=== PATIENT | female | born 1960 | race Caucasian/White ===

== ENCOUNTER 2016-11-16 07:24 | Outpatient (CLI) | payer MEDICAID ==
[~2016-11-16] VITALS: Ht 160 cm; Wt 106.8 kg
--- NOTE | ~2016-11-16 | OP ---
PATIENT NAME: TERRANCE SCOTT MEDICAL RECORD: [id number] :58 LOCATION:D[facility] ADMISSION DATE: SURGEON: BIBI RUST MD DATE OF OPERATION: 11/16/2016 PROCEDURES: 1. Left heart catheterization. 2. Selective coronary angiography. 3. Left ventriculogram. INDICATION: Angina and coronary artery disease. PROCEDURE IN DETAIL: After informed consent was obtained and after a detailed explanation of risks, benefits as well as alternative therapies, the patient elected to proceed with angiogram and heart catheterization. The right radial area was prepped and draped in normal sterile fashion. The right radial artery was cannulated via modified Seldinger technique with placement of 5-English sheath. All catheters were exchanged through this sheath. FINDINGS: Left ventriculogram was performed in the standard 30-degree GIMENEZ view reveals good cardiac wall motion throughout all segments. Overall ejection fraction estimated at 55%. SELECTIVE CORONARY ANGIOGRAPHY: 1. Left main showed no significant angiographic disease. 2. Left anterior descending has previously placed stents in the LAD and LAD diagonal. These are widely patent with no significant restenosis. No disease elsewise throughout the LAD or its branches. 3. Left circumflex shows moderate irregularities, but no flow-limiting stenosis. 4. Right coronary has moderate irregularities, but no flow-limiting stenosis. OVERALL IMPRESSION: No significant restenosis of the previously placed stents. No disease elsewise. Continue medical management of the coronary artery disease and cardiac risk factors. TRANSINT:[id number] Voice Confirmation ID: [id number] DOCUMENT ID: [id number] BIBI RUST MD CC: [id number] DICTATION DATE: 11/16/16 0938 SENIOR DATASTAGE DEVELOPER: 11/16/161924 DEP CLI 11/16/16 [facility] [address] [place] [id number]
--- NOTE | ~2016-11-16 | HEMODYNAMI ---
PATIENT:TERRANCE SCOTT MEDICAL RECORD: [id number] : 58 LOCATION:[facility] ADMISSION DATE: 11/16/16 Generatedon:11/16/20169:30 Patient name: TERRANCE SCOTT Patient #: [id number] SSN: D OB: 1960 Date of study: 11/16/2016 Page: Of Hemodynamic Procedure Report Patient Data Patient Demographics Procedure consent was obtained First Name: TERRANCE Gender: Female Last Name: TYLER : 1960 Middle Initial: MOHSEN Age: 56 year(s) Patient #: [id number] Race: Additional ID: [id number] Contact details [address]: [address] [place] [address] State: [place] City: [place] Zip code: [address] Past Medical History History of disease Date Diagnosis Comments CAD Allergies: No known allergies Admission Admission Data Admission Date: 11/16/2016 Admission Time: 7:24 Lab Results Lab Result Date: 11/16/2016 Lab Result Time: 7:50 Biochemistry Name Units Result Min Max BUN mg/dl 18 --(---*)-- 7 18 Creatinine mg/dl 1.2 --(---*)-- 0.6 1.3 CBC Name Units Result Min Max Hematocrit % 40 -*(----)-- 42 54 Hemoglobin g/dl 14 --(*---)-- 13.5 17.5 Procedure Procedure Types Cath Procedure Diagnostic Procedure LHC LH w/Coronaries Miscellaneous Procedures Moderate Sedation up to 30 minutes Procedure Description Procedure Date Procedure Date: 11/16/2016 Procedure Start Time: 9:20 Procedure End Time: 9:30 Procedure Staff Name Function Boni Coreas MD Performing Physician Diogenes Easley RT Scrub Arik Wayne RN Nurse Essence Stauffer RT Monitor Neville Marroquin RT Train Reservation Clerk Procedure Data Cath Procedure Fluoroscopy Diagnostic fluoroscopy Total fluoroscopy Time: 1 time: 1 min min Diagnostic fluoroscopy Total fluoroscopy dose: dose: 240.44 mGy 240.44 mGy Contrast Material Contrast Material Type Amount (ml) Isovue 300 88 Entry Location Entry Primary Successful Side Size Upsize Upsize Entry Closure Barcenas ccessful Closure Location (Fr) 1 (Fr) 2 (Fr) Remarks Device Remarks Radial Right 6 Fr Mechanical artery Short Compression Estimated blood loss: 5 ml Diagnostic catheters Device Type Used For End Catheter Placement Terumo 5Fr Casey 110cm LV Angiography catheter Terumo 5Fr Casey 110cm Left Coronary catheter Angiography Terumo 5Fr Casey 110cm Right Coronary catheter Angiography Procedure Complications No complications Procedure Medications Medication Administration Route Dosage Oxygen NC 2 l/min Heparin Flush Bag added to field 2 bags (1000units/500ml NS) Lidocaine 2% added to field 20 Radial Cocktail added to field 1 syringe (Verapomil 2mg/Nitro 400mcg/Heparin 1500units) 0.9% NaCl I.V. 100 ml/hr Fentanyl I.V. 50 mcg Versed I.V. 1 mg Fentanyl I.V. 50 mcg Versed I.V. 1 mg Fentanyl I.V. 50 mcg Fentanyl I.V. 50 mcg Versed I.V. 1 mg Radial Cocktail I.A. 1 syringe (Verapomil 2mg/Nitro 400mcg/Heparin 1500units) Hemodynamics Rest HGB: 14 (g/dl) Heart Rate: 68 (bpm) Snapshots Pre Cath Intra NCS Post Cath Vital Signs Time Heart Resp SPO2 NIBP (mmHg) Rhythm Pain Sedation Rate (ipm) (%) Status Level (bpm) 8:40:38 73 16 95 120/80(105) NSR 0 (11) 10(A) , No pain 8:44:56 74 18 99 122/86(109) NSR 0 (11) 10(A) , No pain 8:49:14 71 19 100 120/86(105) NSR 0 (11) 10(A) , No pain 8:53:34 75 16 98 114/78(99) NSR 0 (11) 10(A) , No pain 8:57:50 80 16 97 114/83(95) NSR 0 (11) 10(A) , No pain 9:02:06 77 16 97 115/80(97) NSR 0 (11) 10(A) , No pain 9:06:26 77 16 94 108/79(92) NSR 0 (11) 10(A) , No pain 9:10:42 68 17 95 111/74(95) NSR 0 (11) 9(A) , No pain 9:14:58 69 18 94 98/71(89) NSR 0 (11) 9(A) , No pain 9:19:10 68 18 92 114/75(94) NSR 0 (11) 9(A) , No pain 9:23:32 84 18 92 96/63(81) NSR 0 (11) 9(A) , No pain 9:27:46 89 18 94 103/65(81) NSR 0 (11) 9(A) , No pain Medications Time Medication Route Dose Verified Delivered Reason Notes E ffectiveness by by 8:41:42 Oxygen NC 2 l/min Boni Elise Per Joss Wayne RN physician 8:41:51 Heparin Flush added 2 bags Boni Plata used for Bag to Joss Coreas MD procedure (1000units/500ml field NS) 8:41:58 Lidocaine 2% added 20ml Boni Plata used for to vial Joss Coreas MD procedure field 8:42:11 Radial Cocktail added 1 Boni Boni used for (Verapomil to syringe Joss Coreas MD procedure 2mg/Nitro field 400mcg/Heparin 1500units) 8:58:33 0.9% NaCl I.V. 100 Arik Arik Per ml/hr Tone Wayne RN physician RN 9:09:03 Fentanyl I.V. 50 mcg Arik Arik for sedation Tone Wayne RN RN 9:09:10 Versed I.V. 1 mg Arik Arik for sedation Tone Wayne RN RN 9:10:27 Fentanyl I.V. 50 mcg Arik Arik for sedation Tone Wayne RN RN 9:10:34 Versed I.V. 1 mg Arik Arik for sedation Tone Wayne RN RN 9:17:37 Fentanyl I.V. 50 mcg Arik Arik for sedation Tone Wayne RN RN 9:21:31 Fentanyl I.V. 50 mcg Arik Arik for sedation Tone Wayne RN RN 9:22:07 Versed I.V. 1 mg Arik Arik for sedation Tone Wayne RN RN 9:22:14 Radial Cocktail I.A. 1 Arik Boni for (Verapomil syringe Tone Coreas MD vasodilation 2mg/Nitro RN 400mcg/Heparin 1500units) Procedure Log Time Note 8:15:55 Neville Lopez RT(R) sent for patient. Start room use. 8:35:17 Time tracking: Regular hours 8:35:21 Plan of Care:Hemodynamics will remain stable., Cardiac rhythm will remain stable., Comfort level will be maintained., Respiratory function will remain adequate., Patient/ family verbilizes understanding of procedure., Procedure tolerated without complication., Recovers from procedure without complications.. 8:35:25 Patient received from Pre/Post Procedure Room to CCL 3 Alert and oriented. Tansferred to table in Supine position. 8:35:26 Warm blankets applied, and denis hugger turned on for patient comfort. 8:35:26 Correct patient and procedure confirmed by team. 8:35:27 Signed procedure consent form obtained from patient. 8:35:28 ECG and BP/O2 sat monitors applied to patient. 8:38:30 Pre-procedure instructions explained to patient. 8:38:30 Pre-op teaching completed and patient verbalized understanding. 8:38:31 Family in waiting room. 8:38:33 Patient NPO since Midnight. 8:38:42 Patient allergic to No known allergies 8:38:44 Is the patient allergic to Iodine/contrast media? No. 8:38:45 Is patient on blood thinner?Yes 8:38:48 ACC The patient was administered the following blood thiners within the last 24 hours: ACCPlavix 8:38:49 Patient diabetic? No. 8:38:52 Previous problem with sedation/anesthesia? No ? 8:38:53 Snore? Yes 8:38:54 Sleep apnea? No 8:38:55 Deviated septum? No 8:38:56 Opens mouth fully? Yes 8:38:56 Sticks out tongue? Yes 8:38:58 Airway obstruction? No ? 8:39:09 Dentures? No ? 8:39:12 Modified Feliciano's test Ulnar < 7 seconds 8:39:14 Patient pain scale 0/10 ?. 8:39:21 IV patent on arrival in left wrist with 0.9% NaCl at KVO. 8:39:25 Vital chart was started 8:40:02 Lab Result : Creatinine 1.2 mg/dl 8:40:02 Lab Result : BUN 18 mg/dl 8:40:02 Lab Result : Hematocrit 40 % 8:40:02 Lab Result : Hemoglobin 14 g/dl 8:40:05 Lab results completed and on chart. 8:40:07 Right Radial & Right Groin area was prepped with chlora-prep and draped in sterile fashion 8:40:08 Alarms reviewed by R. N. 8:40:08 Sharps counted by scrub and verified by R.N. 8:40:11 Use device set Radial Dx 8:40:14 Tegaderm 4 x 4 opened to sterile field. 8:40:16 Acist Hand Control opened to sterile field. 8:40:16 Acist Manifold opened to sterile field. 8:40:17 Acist Syringe opened to sterile field. 8:40:18 Medline Cath Pack opened to sterile field. 8:40:18 Bag Decanter opened to sterile field. 8:40:19 Terumo 6Fr Slender Glidesheath opened to sterile field. 8:40:19 St Jules 260cm J .035 wire opened to sterile field. 8:41:42 Oxygen 2 l/min NC was administered by Arik Wayne RN; Per physician; 8:41:51 Heparin Flush Bag (1000units/500ml NS) 2 bags added to field was administered by Boni Coreas MD; used for procedure; 8:41:58 Lidocaine 2% 20ml vial added to field was administered by Boni Coreas MD; used for procedure; 8:42:09 Rhythm: sinus rhythm 8:42:11 Radial Cocktail (Verapomil 2mg/Nitro 400mcg/Heparin 1500units) 1 syringe added to field was administered by Boni Coreas MD; used for procedure; 8:42:12 Full Disclosure recording started 8:42:19 H&P Date Dictated: 09/27/2016 New H&P dictated by physician.. 8:49:44 Baseline sample Acquired. 8:58:33 0.9% NaCl 100 ml/hr I.V. was administered by Arik Wayne RN; Per physician; 9:01:01 Zero performed for pressure channel P1 9:08:40 Final Timeout: patient, procedure, and site verified with staff and physician. All members of the team are in agreement. 9:08:43 Right Radial site verified by team. 9:08:45 Physical assessment completed. ASA score P 2 - A patient with mild systemic disease as per Boni Coreas MD. 9:08:48 Sedation plan: IV Moderate Sedation Versed, Fentanyl 9:09:03 Fentanyl 50 mcg I.V. was administered by Arik Wayne RN; for sedation; 9:09:10 Versed 1 mg I.V. was administered by Arik Wayne RN; for sedation; 9:10:27 Fentanyl 50 mcg I.V. was administered by Arik Wayne RN; for sedation; 9::34 Versed 1 mg I.V. was administered by Arik Wayne RN; for sedation; 9:17:37 Fentanyl 50 mcg I.V. was administered by Arik Wayne RN; for sedation; 9:20:37 Procedure started. 9::47 Local anesthetic to right radial artery with Lidocaine 2% by Boni Coreas MD.INITIAL ACCESS ONLY 9:21:24 A 6 Fr Short sheath was inserted into the Right Radial artery 9:21:31 Fentanyl 50 mcg I.V. was administered by Arik Wayne RN; for sedation; 9:22:07 Versed 1 mg I.V. was administered by Arik Wayne RN; for sedation; 9:22:14 Radial Cocktail (Verapomil 2mg/Nitro 400mcg/Heparin 1500units) 1 syringe I.A. was administered by Boni oCreas MD; for vasodilation; 9:22:17 A Terumo 5Fr Casey 110cm catheter was advanced over the wire and used for LV Angiography. 9:22:52 LV gram done using GIMENEZ 9::56 Injector settings: Ml/sec: 5, Volume: 15, 9:23:02 EF : 50 % 9:23:20 A Terumo 5Fr Casey 110cm catheter was advanced over the wire and used for Left Coronary Angiography. 9:25:07 A Terumo 5Fr Casey 110cm catheter was advanced over the wire and used for Right Coronary Angiography. 9:25:38 Catheter removed. 9:25:55 Sheath removed intact; hemostasis achieved with Mechanical Compression to the Right Radial artery. 9:26:00 Procedure ended.(Physican Out) 9:26:11 Fluoroscopy time 01.00 minutes. 9:26:17 Fluoroscopy dose: 240.44 mGy 9:26:17 Flurop Dose total: 240.44 9:26:20 Contrast amount:Isovue 300 88ml. 9:26:21 Sharps counted by scrub and verified by R.N. 9:26:25 TR band inflated with 12cc of air. 9:26:26 Insertion/operative site no bleeding no hematoma. 9:26:33 Post right radial artery:stable, clean and dry 9::34 Post Procedure Pulses reassessed and unchanged 9:26:39 Post-procedure physical assessment completed. ASA score P 2 - A patient with mild systemic disease as per Boni Coreas MD. 9:26:42 Post procedure rhythm: unchanged. 9::45 Estimated blood loss: 5 ml 9::47 Post procedure instruction explained to patient.Patient verbalizes understanding. 9:26:47 Patient needs reinforcement of post procedure teaching. 9:27:00 Procedure type changed to Cath procedure, Diagnostic procedure, LHC, LHC w/Coronaries, Miscellaneous Procedures, Moderate Sedation up to 30 minutes 9:27:09 Procedure Complication : No complications 9:27:18 Terumo TR Band Standard opened to sterile field. 9:27:50 Procedure and supply charges have been captured, reviewed, submitted and are correct. 9:27:51 See physician's report for complete and final results. 9:30:04 Vital chart was stopped 9:30:07 Report given to Pre/Post Procedure Room. 9:30:10 Patient transfered to Pre/Post Procedure Room with Stretcher. 9:30:19 Procedure ended. 9:30:19 Full Disclosure recording stopped 9:30:26 End room use (Document Last) Device Usage Item Name Manufacture Quantity Catalog Hospital Part Current Minimal Lot# / Number Charge Number Stock Stock Serial# Code Tegaderm 4 1 [id number] 5 x 4 Acist Hand Acist 1 01461 626157 [id number] [id number] 5 Control [employer] Inc Acist Acist 1 48700 533928 762970 [id number] 5 Manifold [employer] Inc Acist Acist 1 96724 345923 664102 055165 20 Syringe [employer] Inc Medline Cardinal 1 [id number] 017999 11308 143415 5 Cath Pack Health Bag Microtek 1 2001S 858469 53346 150208 5 Decanter [employer] Terumo 6Fr Terumo 1 [id number] 745997 [id number] [address] J[address] St Jules 1 307113 669776 729729 911338 30 260cm J .035 wire Terumo 5Fr Terumo 1 40-5579 623011 290580 738692 5 Casey 110cm catheter Terumo TR Terumo 1 [id number] 830621 924004 [id number] 40 Band Standard Signature Audit [place] Stage Time Signature Unsigned Intra-Procedure 11/16/2016 Essence 9:30:37 AM Counts RT(R) Signatures Monitor : Essence Signature : Counts RT Date : Time : [address] [id number] [place] [address]
[~2016-11-16 07:24] MED LIST: BAYER CHEWABLE81 MG PO; CATAPRES0.1 MG PO; COREG6.25 MG PO; CYMBALTA60 MG PO; DESERYL100 MG PO; HYDROCODONE-APA1 TAB PO; HYZAAR 100-25 T1 TAB PO; IBUPROFEN800 MG PO; NEURONTIN 300300 MG PO; NORVASC10 MG PO; OMEPRAZOLE40 MG PO; PLAVIX75 MG PO; PRAVASTATIN SOD10 MG PO; RANEXA500 MG PO; SOMA350 MG PO; SYNTHROID25 MCG PO; ZANTAC150 MG PO
[2016-11-16 07:48] VITALS: BP 117/83; Ht 160 cm; Wt 106.8 kg
[2016-11-16 08:00] LABS: BASOPHILS 0.3 % (0.0-2.0); EOSINOPHILS 4.5 % (0-7); IMMATURE GRANULOCYTES 0.3 % (0-5); LYMPHOCYTES 32.5 % (15-50); MCH 31.4 pg (26.0-34.0); MCV 89.7 fL (80.0-100.0); MEAN PLATELET VOLUME 9.7 fL (7.4-10.4); NEUTROPHILS 52.4 % (40-80); PLATELET COUNT 266 10x3/uL (130-400); RBC 4.46 10x6/uL (4.00-5.40); RDW 13.9 % (11.5-14.5); WBC 6.9 10x3/uL (4.8-10.8)
[2016-11-16 08:17] LABS: ANION GAP 12.1 mmol/L (8-16); CALCIUM 9.2 mg/dL (8.5-10.1); CARBON DIOXIDE 30.3 mmol/L (21.0-32.0); CREATININE - SERUM 1.2 mg/dL (0.6-1.3); POTASSIUM - SERUM 3.4 mmol/L (3.5-5.1)
--- NOTE | 2016-11-16 09:47 | NUR ---
0940 RECEIVED PT FROM CNMT, PT IS DROWSY. RR EVEN AND UNLABORED. SINUS RHYTHM, RATE IS 90. PT DENIES ANY C/O CHEST PAIN OR NAUSEA. TR BAND IS CDI TO RIGHT WRIST, CAP REFILL IS BRISK, HAND IS WARM, PT DENIES ANY PAIN. CALL LIGHT IN REACH. PO FLUIDS SERVED.
--- NOTE | 2016-11-16 10:20 | HP ---
PATIENT: TERRANCE ROMO MEDICAL RECORD: [id number] ACCOUNT: [id number] LOCATION:[facility] : 58 ADMISSION DATE: 11/16/16 HISTORY AND PHYSICAL EXAMINATION DIAGNOSES: 1. Angina. 2. Coronary artery disease. 3. Hypertension. 4. Hyperlipidemia. 5. Abnormal nuclear stress test, perfusion defect anteriorly and inferiorly. HISTORY OF PRESENT ILLNESS: Mrs. Romo presents with increasing anginal symptomatology, underwent risk stratification with stress testing revealing significant perfusion defect anteriorly as well as inferiorly with large ____ at risk. She continues to have symptomatology, hence brought for cardiac catheterization. PHYSICAL EXAMINATION: GENERAL APPEARANCE: Well-nourished, well-developed, appears stated age. Level of distress, comfortable. PSYCHIATRIC: Mental status, alert, normal affect. Orientation, oriented to time, place and person. EYES: Lids and conjunctiva, noninjected. No discharge, no pallor. ENT: Lips, teeth, gums, normal dentition. Oropharynx, no cyanosis, no pallor. NECK: Carotid arteries, bilateral normal upstroke, no bruits, no thrills. JUGULAR VEINS: No jugular venous pressure or distention. CERVICAL LYMPH NODES: Nontender, nonenlarged. THYROID: Not enlarged. Nontender. No nodules. LUNGS: Respiratory effort, unlabored. CHEST: Normal curvature. No thoracic deformity. No chest wall tenderness. Percussion, resonant. Auscultation, clear. No wheezes, no rales, no rhonchi. CARDIOVASCULAR: Precordial exam, nondisplaced. No heaves or pericardial thrills. Rate and rhythm, regular. Heart sounds, normal S1, normal S2. No S3, no gallop, no rub. Systolic murmur, not heard. Diastolic murmur, not heard. EXTREMITIES: No cyanosis, no edema. Peripheral pulses, full and equal in all extremities, except as noted. No bruits appreciated. ABDOMEN: Soft, nondistended. Normal aorta. No bruit. Nontender. No masses. Liver, nontender, no hepatomegaly. Spleen, nontender, no splenomegaly. MUSCULOSKELETAL: No joint tenderness. No joint swelling. No erythema. NEUROLOGICAL: Normal gait, normal strength, normal tone. SKIN: Warm and dry. REVIEW OF SYSTEMS: The patient reports easy bruising but reports no swollen glands. The patient reports no fever, no night sweats, no significant weight gain, no significant weight loss. No significant exercise tolerance. The patient reports no dry eyes, no irritation, no vision change. Patient reports no difficulty hearing and no ear pain. Patient reports no frequent nose bleeds or nose and sinus problems. Patient reports on arm pain on exertion. No shortness of breath while lying down. No history of heart murmur. Patient reports no cough, no wheezing or coughing up blood. Patient reports no abdominal pain, no vomiting. Normal appetite. No diarrhea and not vomiting blood. No nausea and no constipation. Patient reports no incontinence. No difficulty urinating. No hematuria. No increased frequency. Patient reports no muscle aches. No weakness, no arthralgias, no back pain. No swelling of the HISTORY AND PHYSICAL [id number] TYLER,TERRANCE MOHSEN extremities. Patient reports no abnormal mole, no jaundice, no rashes. Reports no loss of consciousness. No weakness and no numbness. No seizures, dizziness, or headaches. The patient reports no depression, no sleep disturbance, feeling safe in a relationship and no alcohol abuse. Patient reports on fatigue. Reports no runny nose or sinus pressure. No itching, no hives, and no frequent sneezing. OVERALL IMPRESSION: Angina with abnormal nuclear stress test. We will proceed with coronary angiography. Further care depends upon findings of the angiography. TRANSINT:[id number] Voice Confirmation ID: [id number] DOCUMENT ID: [id number] BIBI RUST MD at 1020 CC: [id number] DICTATION DATE: 11/16/16916 MANAGER ENVIRONMENTAL HEALTH AND SAFETY: 11/16/16 0949 [facility] [address] [place] [address]
--- NOTE | 2016-11-16 13:18 | NUR ---
1115- TR BAND OFF PER PROTOCOL, BANDAID APPLIED, NO BLEEDING NOTED, IV D'C WITH CATH TIP INTACT, WRITTEN AND VERBAL D'C INSTRUCTIONS GIVEN TO PT. D'C HOME.
--- NOTE | 2016-11-16 13:20 | NUR ---
1125-AMBULATE TO REST ROOM-VOID
== END 2016-11-16 11:30 | disposition home or self-care (01) ==
LOC: D.CATH 07:24
PROVIDERS: Internal Medicine Interventional Cardiology
DX: I25.119 Atherosclerotic heart disease of native coronary artery with unspecified angina pectoris (principal); I10 Essential (primary) hypertension; E78.5 Hyperlipidemia, unspecified; R94.30 Abnormal result of cardiovascular function study, unspecified

== ENCOUNTER 2016-12-23 10:27 | Emergency (ER) | payer MEDICAID ==
[2016-11-16 07:48] VITALS: BMI 41.7
[2016-12-23 11:11] LABS: BASOPHILS 0.1 % (0-2); EOSINOPHILS 2.8 % (0-7); HEMATOCRIT 42.8 % (36.0-48.0); HEMOGLOBIN 14.6 g/dL (12-16); IMMATURE GRANULOCYTES 0.3 % (0-5); MCH 31.2 pg (26.0-34.0); MCHC 34.1 g/dL (31.0-37.0); MCV 91.5 fL (80.0-100.0); MEAN PLATELET VOLUME 9.7 fL (7.4-10.4); MONOCYTES 6.2 % (2-11); NEUTROPHILS 68.6 % (40-80); PLATELET COUNT 275 10x3/uL (130-400); RBC 4.68 10x6/uL (4.00-5.40); RDW 14.3 % (11.5-14.5); WBC 7.9 10x3/uL (4.8-10.8)
[2016-12-23 11:18] LABS: APPEARANCE HAZY (CLEAR); BACTERIA MODERATE /hpf (NONE SEEN); BILIRUBIN NEGATIVE (NEGATIVE); COLOR YELLOW (YELLOW); GLUCOSE NEGATIVE (NEGATIVE); KETONE NEGATIVE (NEGATIVE); LEUKOCYTE ESTERASE TRACE (NEGATIVE); MUCUS <1+ /lpf (NONE SEEN); NITRITE NEGATIVE (NEGATIVE); PROTEIN NEGATIVE (NEGATIVE); RED CELLS - URINE OCC /hpf (0-5); UROBILINOGEN NORMAL (NORMAL); WHITE CELLS - URINE 0-5 /hpf (0-5)
[2016-12-23 11:24] LABS: ALBUMIN 3.7 g/dL (3.4-5.0); BILIRUBIN - TOTAL 0.3 mg/dL (0.2-1.3); CALCIUM 9.9 mg/dL (8.5-10.1); CARBON DIOXIDE 29.9 mmol/L (21.0-32.0); CREATININE - SERUM 1.2 mg/dL (0.6-1.3); POTASSIUM - SERUM 3.9 mmol/L (3.5-5.1); PROTEIN - SERUM 7.5 g/dL (6.4-8.2)
== END 2016-12-23 13:10 | disposition home or self-care (01) ==
LOC: D.ER 10:27
PROVIDERS: Emergency Medicine
DX: M54.5 Low back pain (principal); I10 Essential (primary) hypertension; E78.5 Hyperlipidemia, unspecified; I25.10 Atherosclerotic heart disease of native coronary artery without angina pectoris; F17.200 Nicotine dependence, unspecified, uncomplicated

== ENCOUNTER → 2017-01-30 10:52 | Outpatient (CLI) | payer MEDICAID ==
[2016-11-16 07:48] VITALS: BMI 41.7
== END | disposition home or self-care (01) ==
LOC: D.NM 10:52
DX: R11.0 Nausea (principal); E11.9 Type 2 diabetes mellitus without complications

== ENCOUNTER → 2017-07-15 10:36 | Outpatient (CLI) | payer MEDICAID ==
[2016-11-16 07:48] VITALS: BMI 41.7
[2017-07-15 12:11] LABS: ALBUMIN 3.6 g/dL (3.4-5.0); BILIRUBIN - DIRECT 0.06 mg/dL (0.00-0.30); BILIRUBIN - INDIRECT 0.17 mg/dL (0.00-1.00); BILIRUBIN - TOTAL 0.23 mg/dL (0.2-1.3); PROTEIN - SERUM 7.2 g/dL (6.4-8.2)
== END | disposition home or self-care (01) ==
LOC: D.US 06-25 09:30 → D.LAB 06-25 09:30 → D.US 09:30
PROVIDERS: Internal Medicine Gastroenterology
DX: K76.0 Fatty (change of) liver, not elsewhere classified (principal)

== ENCOUNTER → 2017-08-12 12:53 | Outpatient (CLI) | payer MEDICAID ==
[2016-11-16 07:48] VITALS: BMI 41.7
== END | disposition home or self-care (01) ==
LOC: D.MRI 08-08 14:00
DX: M48.062 Spinal stenosis, lumbar region with neurogenic claudication (principal)

== ENCOUNTER 2017-09-26 05:45 | Day surgery (SDC) | payer MEDICAID ==
[~2017-09-26] VITALS: Ht 160 cm; Wt 98.4 kg
--- NOTE | ~2017-09-26 | OP ---
PATIENT NAME: TERRANCE SCOTT MEDICAL RECORD: [id number] :58 LOCATION:[facility] ADMISSION DATE: SURGEON: CAMI GODINEZ MD DATE OF OPERATION: 09/26/2017 PREOPERATIVE DIAGNOSIS: Acromioclavicular arthritis, painful. POSTOPERATIVE DIAGNOSES: Acromioclavicular arthritis, painful plus impingement syndrome and severe biceps tendinitis along with labral tearing. PROCEDURES: 1. Arthroscopic biceps tenotomy. 2. Arthroscopic distal clavicle excision. 3. Arthroscopic subacromial decompression, acromioplasty and bursectomy all of the right shoulder. SURGEON: Cami Godinez MD ANESTHESIA: General. INTRAOPERATIVE COMPLICATIONS: None. SUMMARY OF PATHOLOGIC FINDINGS: Somewhat inconsistent with the patient's MRI. The patient was found to have impingement with excoriation of the coracoacromial ligament along with grade IV chondromalacia of the acromioclavicular joint. The patient also had severe biceps tendinitis with 50% tearing. No rotator cuff tearing was noted however. OPERATIVE SUMMARY IN DETAIL: After obtaining the appropriate preoperative orthopedic surgery consent as well as anesthetic consultation, evaluation and clearance, the patient was brought to the operating room and placed on the operating table in supine position. After adequate laryngeal mask airway was administered, the patient was placed in left lateral decubitus position. All pressure points were well padded to include down leg peroneal pad as well as axillary roll. She was held firmly to the operating table using the vacuum pack suction system. Right upper extremity and shoulder were prepped and draped in routine sterile fashion. The arm was held in the Arthrex traction boom at 30 degrees of forward flexion, 30 degrees of abduction with 10 pounds of traction laterally. Arthroscopy was established in the glenohumeral joint from a posterior portal. Anterior portal was established in the anterior safe interval. Diagnostic arthroscopy did show the patient had substantial bicipital labral junction dysfunction; however, the biceps tendon was in such poor condition I felt like a debridement plus tenotomy was the most appropriate. The labrum was debrided and the biceps was tenotomized. Having completed the tenotomy, attention was turned to the subacromial space. A sensory lateral portal was created through which the [place] tissue ablation system was utilized to denude the undersurface of the acromion of all soft tissue elements and released coracoacromial ligament and denude the undersurface of the clavicle and a large inferior osteophytes. A 5-0 barrel bur was then used to perform acromioplasty at the level of acromioclavicular joint, and through a separate anterior arthroscopic portal under direct arthroscopic visualization distal clavicle was excised for 1 cm with all osteophytes removed. Having completed this, the rotator cuff was thoroughly inspected and found to have no superficial superior pathology as the undersurface was cleaned as well. Having completed this, arthroscopy portals were closed in routine interrupted fashion using 4-0 OPERATIVE REPORT [id number] TERRANCE SCOTT Prolene. Sterile dressings were applied. The patient was awakened and taken to the recovery room in stable condition. All final needle and sponge counts were correct. TRANSINT:[id number] Voice Confirmation ID: [id number] DOCUMENT ID: [id number] HERBERT BENAVIDES, CAMI YOUSIF at 1535 CC: [id number] DICTATION DATE: 09/26/17 1005 RAW SCALES OPERATOR: 09/26/17 1052 [facility] 09/26/17 [id number] [place] [address]
[~2017-09-26 05:45] MED LIST changes: +OXYCODONE HCL5 MG PO
[2017-09-26 07:07] LABS: HEMATOCRIT 40.1 % (36.0-48.0); HEMOGLOBIN 13.7 g/dL (12-16); MCH 30.4 pg (26.0-34.0); MCHC 34.2 g/dL (31.0-37.0); MCV 88.9 fL (80.0-100.0); MEAN PLATELET VOLUME 9.4 fL (7.4-10.4); RBC 4.51 10x6/uL (4.00-5.40); RDW 14.2 % (11.5-14.5)
[2017-09-26 07:16] VITALS: BP 103/72; Ht 160 cm; Wt 98.4 kg
[2017-09-26 07:44] LABS: ANION GAP 14.1 mmol/L (8-16); CALCIUM 8.7 mg/dL (8.5-10.1); CARBON DIOXIDE 28.6 mmol/L (21.0-32.0); POTASSIUM - SERUM 3.7 mmol/L (3.5-5.1)
[2017-09-26] MEDS ORDERED: DILAUDID4 MG PO (09:59)
== END 2017-09-26 11:30 | disposition home or self-care (01) ==
LOC: D.OPS 05:45 → D.PAN 13:45 → D.OPS 13:45
PROVIDERS: Anesthesiology
DX: M75.42 Impingement syndrome of left shoulder (principal); I25.10 Atherosclerotic heart disease of native coronary artery without angina pectoris; I10 Essential (primary) hypertension; E78.5 Hyperlipidemia, unspecified; F17.200 Nicotine dependence, unspecified, uncomplicated; E03.9 Hypothyroidism, unspecified; K21.9 Gastro-esophageal reflux disease without esophagitis; J44.9 Chronic obstructive pulmonary disease, unspecified; Z01.812 Encounter for preprocedural laboratory examination

== ENCOUNTER → 2018-01-17 08:51 | Outpatient (CLI) | payer MEDICAID ==
[2017-09-26 07:16] VITALS: BMI 38.5
[~2018-01-17 08:51] MED LIST changes: +DILAUDID4 MG PO
[2018-01-17 10:26] LABS: ALBUMIN 3.5 g/dL (3.4-5.0); BILIRUBIN - INDIRECT 0.18 mg/dL (0.00-1.00); BILIRUBIN - TOTAL 0.23 mg/dL (0.2-1.3)
[2018-01-17 10:28] LABS: BILIRUBIN - DIRECT 0.05 mg/dL (0.00-0.30)
== END | disposition home or self-care (01) ==
LOC: D.US 01-15 09:30 → D.LAB 01-15 10:00 → D.US 08:51
PROVIDERS: Internal Medicine Gastroenterology
DX: K76.0 Fatty (change of) liver, not elsewhere classified (principal)

== ENCOUNTER 2018-02-14 08:02 | Day surgery (SDC) | payer MEDICAID ==
[~2018-02-14] VITALS: Ht 162.6 cm; Wt 101.6 kg
--- NOTE | ~2018-02-14 | OP ---
PATIENT NAME: TERRANCE SCOTT MEDICAL RECORD: [id number] :58 LOCATION:[facility] ADMISSION DATE: SURGEON: MARIAMA WEST MD DATE OF OPERATION: 02/14/2018 PREOPERATIVE DIAGNOSES: Disc herniation L1-L2 right and disc herniation L2-L3 left. PROCEDURE: Lumbar laminotomy, medial facetectomy and foraminotomy with discectomy L1-L2 on the right and separate incision L2-L3 left with discectomy and foraminotomy and facetectomy. SURGEON: Mariama West MD DESCRIPTION AND TECHNIQUE: After induction of general endotracheal anesthesia, the patient was rolled prone on a Ray frame. Lumbar spine was prepped and draped in usual sterile fashion. Fluoroscopic x-ray and spinal needle localized the L1-L2 interspace on the right side at L2-L3 interspace on the left side. Stab incision was created at each level. A series of dilators was used to advance a METRx retractor at L1-L2 on the right and L2-L3 on the left. Level was confirmed with fluoroscopic x-ray at each level. A microscope and Midas Guido drill were used to perform laminotomy, medial facetectomy, and foraminotomy at L1-L2 on the right and L2-L3 on the left. Hypertrophied ligamentum flavum was removed at both levels under microscope illumination. Next, the disc space was inspected at each level, there was found to be a free fragment disc herniation at L2-L3 on the left and disc protrusion at the L1-L2 on the right. Disc material was removed in each disc space as well as canal at both levels. Following this, the L1-L2 and L2-L3 nerve roots were decompressed well. Meticulous hemostasis was maintained throughout the wound. The wound was irrigated with copious amounts of Ancef irrigant solution. The retractors were removed. Fascia was reapproximated with an interrupted 2-0 Vicryl suture. Sterile dressing was applied to both wounds. The patient was awakened in good condition and taken to recovery. All counts were reported as correct. Estimated blood loss was minimal. TRANSINT:[id number] Voice Confirmation ID: [id number] DOCUMENT ID: [id number] MARIAMA WEST MD at 1555 CC: [id number] DICTATION DATE: 03/25/18 1333 DISASTER RECOVERY CONSULTANT: 03/25/18 1422 DEP SDC 02/14/18 [facility] [address] [place] [place] [address]
[2018-02-14 08:21] LABS: HEMATOCRIT 40.5 % (36.0-48.0); HEMOGLOBIN 13.9 g/dL (12-16); MCH 30.8 pg (26.0-34.0); MCHC 34.3 g/dL (31.0-37.0); MCV 89.6 fL (80.0-100.0); MEAN PLATELET VOLUME 9.1 fL (7.4-10.4); PLATELET COUNT 238 10x3/uL (130-400); RBC 4.52 10x6/uL (4.00-5.40); RDW 14.4 % (11.5-14.5); WBC 9.2 10x3/uL (4.8-10.8)
[2018-02-14 08:39] LABS: ANION GAP 9.9 mmol/L (8-16); CARBON DIOXIDE 32.6 mmol/L (21.0-32.0); POTASSIUM - SERUM 3.5 mmol/L (3.5-5.1)
[2018-02-14 09:03] VITALS: Ht 162.6 cm; Wt 101.6 kg
[2018-02-14 09:12] LABS: EOSINOPHILS 5 % (0-7); LYMPHOCYTES 28 % (15-50); MONOCYTES 9 % (2-11); NEUTROPHILS 58 % (40-80); PLATELET ESTIMATE NORMAL
== END 2018-02-14 15:50 | disposition home or self-care (01) ==
LOC: D.OPS 08:02 → D.PAN 10:30 → D.OPS 10:30
PROVIDERS: Anesthesiology
DX: M51.26 Other intervertebral disc displacement, lumbar region (principal); Z01.812 Encounter for preprocedural laboratory examination

== ENCOUNTER 2018-10-09 09:51 | Day surgery (SDC) | payer MEDICARE, MEDICAID ==
[~2018-10-09] VITALS: Ht 160 cm; Wt 103.2 kg
[2018-10-09] VITALS: BP 112/64
--- NOTE | ~2018-10-09 | OP ---
PATIENT NAME: TERRANCE SCOTT MEDICAL RECORD: [id number] :58 LOCATION:[facility] ADMISSION DATE: SURGEON: MARIAMA WEST MD DATE OF OPERATION: 10/09/2018 PREOPERATIVE DIAGNOSES: Lumbar spinal stenosis and recurrent disc herniation at L1-L2 and L2-L3 on the right. PROCEDURE: Lumbar laminectomy, medial facetectomy and foraminotomy, discectomy L1-L2 and L2-L3 on the right with a Rigo retractor. SURGEON: Mariama West MD DESCRIPTION AND TECHNIQUE: After induction of general endotracheal anesthesia, the patient was rolled prone on the Ray frame. Lumbar spine was prepped and draped in usual sterile fashion. Fluoroscopic x-ray and spinal needle localized the L1-L2 interspace. After infiltration of 1:100,000 epinephrine with 1% lidocaine, a skin incision was carried out from the spinous process of L1-L3. The lamina and spinous processes of L1, L2, and L3 were exposed in a subperiosteal manner with a Bovie cautery. The L1-L2 and L2-L3 levels were confirmed with fluoroscopic x-ray and a spinal needle and a Radha elevator. Next, a Midas-Guido drill and microscope were used to perform a laminectomy at L1, L2 and L3. Hypertrophied ligamentum flavum was removed with Cloward rongeurs. At the L1-L2 and L2-L3 interspace a calcified disc herniation was removed with pituitary rongeurs and osteotomes. Additional material was removed from the interspace with pituitary rongeurs. The L1, L2, and L3 nerve roots were decompressed well. Meticulous hemostasis was maintained throughout the wound. Wound was irrigated with copious amounts of Ancef irrigant solution. The fascia was closed with 2-0 Vicryl suture, the subdermal layer was closed with 3-0 Vicryl sutures. The skin was closed with victoriano. A sterile dressing applied to the wound. The patient was awakened in good condition and taken to recovery. All counts reported as correct. Estimated blood loss was minimal. TRANSINT:[id number] Voice Confirmation ID: [id number] DOCUMENT ID: [id number] MARIAMA WEST MD CC: [id number] DICTATION DATE: 10/15/18 0753 BREAKER HAND: 10/15/18 09 [facility] 10/10/18 [facility] [address] [place] [address]
[2018-10-09 10:22] LABS: HEMATOCRIT 39.7 % (36.0-48.0); MCH 31.2 pg (26.0-34.0); MCHC 35.3 g/dL (31.0-37.0); MCV 88.4 fL (80.0-100.0); MEAN PLATELET VOLUME 9.5 fL (7.4-10.4); RBC 4.49 10x6/uL (4.00-5.40); RDW 14.1 % (11.5-14.5); WBC 8.5 10x3/uL (4.8-10.8)
[2018-10-09 12:05] VITALS: BP 81/53; BMI 40.3
[2018-10-09 17:56] VITALS: BP 114/76
[2018-10-09 18:05] VITALS: BMI 40.3
[2018-10-09 18:11] VITALS: Ht 160 cm; Wt 103.2 kg
[2018-10-09 20:00] VITALS: BP 148/96
--- NOTE | 2018-10-09 20:00 | NUR ---
ALERT SITTING UP IN BED EATING, DENIES PAIN AT THIS TIME DRESSING TO LOWER BACK DRY AND INTACT, CALL LIGHT IN REACH
--- NOTE | 2018-10-09 22:00 | NUR ---
CALL TO DR TOBAR FOR PAIN MEDICATION ORDERS RECIEVED MORPHINE GIVEN ORDERED
[2018-10-10 04:00] VITALS: BP 132/91
--- NOTE | 2018-10-10 08:23 | NUR ---
PT STATES ONLY WANTS 1 PERCOCET EVEN THO PAIN LEVEL IS 8/10. STATES SHE ONLY TAKES 1 AT TIME AT HOME. CALL LIGHT IN REACH
[2018-10-10 08:45] VITALS: BP 136/84
--- NOTE | 2018-10-10 09:33 | NUR ---
LATE ENTRY 729.PT UPSET AND TEARFUL THIS AM. CO OF "PAIN MED NOT WORKING" DAVE RN CALLED DR TOBAR ABOUT ORDERS FOR PAIN MEDS. MORPHINE DC AND NEW ORDER FOR NORCO GIVEN PER DR TOBAR. IV INFILTRATED AND PAINFUL. DC WITH TIP IN TACT. PT STATED, "SHE WAS HAPPY WITH ME BECAUSE I WAS FRIENDLY." FRIEND AT BEDSIDE. NO S/S OF ACUTE DISTRESS. CL IN PLACE.
[2018-10-10] MEDS ORDERED: PERCOCET 10-321 EAC1 PO (12:29)
[2018-10-10 12:59] VITALS: BP 122/90
--- NOTE | 2018-10-10 13:10 | NUR ---
DC INSTRUCTIONS AND EDUCATION DONE WITH PT. PERCOCET GIVEN PER MD ORDER PRIOR TO DEPARTURE. ALL BELONGINGS SENT WITH PT AND FRIEND. NO S/S OF ACUTE DISTRESS. VOLUNTEER ASSITED PT DOWN VIA WC.
== END 2018-10-10 13:00 | disposition home or self-care (01) ==
LOC: D.OPS 09:51 → D.PAN 12:00 → D.OPS 14:25 → D.MS 17:33 → D.OPS 10-10 13:00
PROVIDERS: Anesthesiology; ATTEND Neurological Surgery
DX: M48.061 Spinal stenosis, lumbar region without neurogenic claudication (principal); M51.26 Other intervertebral disc displacement, lumbar region; Z01.812 Encounter for preprocedural laboratory examination

== ENCOUNTER → 2018-11-19 10:29 | Outpatient (CLI) | payer MEDICARE, MEDICAID ==
[2018-10-09 18:11] VITALS: BMI 40.3
[~2018-11-19 10:29] MED LIST changes: +PERCOCET 10-321 EAC1 PO
--- NOTE | 2018-12-03 10:38 | ST ---
PATIENT:TERRANCE SCOTT MEDICAL RECORD: [id number] SEX: F LOCATION:[facility] ORDER #: ADMISSION DATE: 11/19/18 AGE OF PATIENT: 58 REFERRING PHYSICIAN: INTERPRETING PHYSICIAN: BIBI RUST MD DATE OF SERVICE: 11/19/2018 PROCEDURE: Nuclear stress test. INDICATIONS: Angina, coronary artery disease, and hypertension. The patient was exercised on standard Lexiscan protocol with 32 mCi of sestamibi injected at peak stress, 10 mCi were used previously for rest images. FINDINGS: Gated SPECT reveals a preserved ejection fraction greater than 70% with good wall motioning and thickening and brightening throughout all segments. SPECT imaging: Cardiolite was used as myocardial perfusion agent. There is reversibility anteriorly. This includes basal, mid, apical, anterior segments. The degree of reversibility is mild to moderate. The amount of myocardium involved is moderate. OVERALL IMPRESSION: 1. This is an abnormal nuclear stress test, reversible changes anteriorly. 2. Gated SPECT reveals a preserved ejection fraction greater than 70%. In this patient with ongoing symptomatology, the current scan does suggest the presence of hemodynamically significant coronary artery disease. We will proceed with coronary angiography as a followup study. TRANSINT:[id number] Voice Confirmation ID: [id number] DOCUMENT ID: [id number] BIBI RUST MD at 1038 CC: [id number] DICTATION DATE: 11/20/18 1658 DIRECTOR OF SPORTS MEDICINE: 11/21/18 1023 [facility] CLI 11/19/18 [place] [id number]
== END | disposition home or self-care (01) ==
LOC: D.HCCARDIO 10:29
PROVIDERS: ATTEND Internal Medicine Interventional Cardiology
DX: I25.119 Atherosclerotic heart disease of native coronary artery with unspecified angina pectoris (principal)

== ENCOUNTER 2019-02-19 16:15 | Inpatient (IN) | payer MEDICARE, MEDICAID ==
[2019-02-18 15:46] LABS: HEMATOCRIT 38.8 % (36.0-48.0); HEMOGLOBIN 13.6 g/dL (12-16); MCH 30.7 pg (26.0-34.0); MCHC 35.1 g/dL (31.0-37.0); MCV 87.6 fL (80.0-100.0); MEAN PLATELET VOLUME 9.3 fL (7.4-10.4); RBC 4.43 10x6/uL (4.00-5.40); RDW 14.3 % (11.5-14.5); WBC 7.3 10x3/uL (4.8-10.8)
[2019-02-19] VITALS (10 sets, daily range): BP systolic 91–125; BP diastolic 52–90; Ht 165.1 cm; Wt 115.7 kg
[~2019-02-19] VITALS: Ht 165.1 cm; Wt 115.7 kg
--- NOTE | 2019-02-19 02:10 | NUR ---
PT GROGGY BUT STATES "MY BACK IS KILLING ME AGAIN", PT PULLED SCDS OFF " I NEEDED THEM OFF THEY WERE HOT", PT REQUESTING PAIN MEDICATION FOR BREAKTHROUGH PAIN, 0.4 MG DILAUDID ADMINISTERED FOR BREAKTHROUGH PAIN, ICE WATER PROVIDED ON REQUEST, PT DENIES FURTHER NEEDS, SR UP X 2, CALL LIGHT IN REACH, BED IN LOW POSITION
--- NOTE | 2019-02-19 09:31 | NUR ---
PATIENT POSITIONED WITH ROLLS UNDER ARMS AND UNDER HIPS ALONG WITH AXILLARY ROLLS, ALL AREAS PADDED SECURED WITH NO IMPINGEMENTS, JAZMIN.
--- NOTE | 2019-02-19 15:26 | NUR ---
0830 LATE ENTRY, PATIENT NOTED TO HAVING SEVERAL SCRATCH LESIONS ON BOTH LEGS, SCABBY AREAS ON FEET, BOTTOM OF FEET BROWN CRACKED, TWORLEY.
--- NOTE | 2019-02-19 16:28 | NUR ---
NO NUBNESS OR TINGLING REPORTED EQUAL STRENGHTS ALL 4 QUADRANTS
--- NOTE | 2019-02-19 19:35 | NUR ---
REPORT REC'D AND CARE ASSUMED, REC'D PT ON ROOM AIR AWAKE, ALERT, AND ORIENTED X 4, LEFT HAND PIV WITH 1/2NS @ 50CC/HR AND RIGHT A/C PIV NS @ 10 AND DILAUDID PROFILE SAW OPERATOR 0.3MG Q8MINS WITH 8MG Q4HR LOCKOUT, PT RATING PAIN "8" ON 0-10 PAIN SCALE, PT UPSET REGARDING "BED AND LINES IN A MESS", LINES STRAIGHTENED AND PT REPOSITIONED UP IN BED, LOWER BACK DRSG ROLLED UP AND BLOODY DRAINAGE NOTED, DRSG REMOVED, MULTIPLE SMALL INCISIONS WITH HENRIQUE, NO ACTIVE BLEEDING NOTED, BORDERED GAUZE DRSG X 2 APPLIED, PARTIAL LINEN CHANGE PROVIDED, DEE PATENT DRAINING CLEAR YELLOW URINE, BILAT LOWER EXT'S WITH SCABS AND SORES FROM "BUG BITES", SCDS INTACT, PPP, SR UP X 2, BED IN LOW POSITION, CALL LIGHT IN REACH.
--- NOTE | 2019-02-19 20:00 | NUR ---
ICE WATER PROVIDED ON REQUEST, PT DENIES FURTHER NEEDS.
--- NOTE | 2019-02-19 20:26 | NUR ---
PT COMPLAINS OF NAUSEA, ZOFRAN GIVEN SLOW IVP, PT REPOSITIONED IN BED FOR COMFORT, DRSG TO LOWER BACK CDI
--- NOTE | 2019-02-19 20:45 | NUR ---
SIGNIFICANT OTHER AT BS, UPDATE PROVIDED, PT DENIES NEEDS, PILLOWS FROM HOME PLACED IN BED WITH PATIENT, VSS, WILL CONT TO MONITOR FOR CHANGES.
--- NOTE | 2019-02-19 22:15 | NUR ---
PT COMPLAINS OF SEVERE LOWER BACK PAIN RATING "10" ON 0-10 PAIN SCALE, 0.4MG DILAUDID GIVEN FOR BREAKTHROUGH PAIN, BP STABLE, WILL MONITOR CLOSELY FOR CHANGES.
--- NOTE | 2019-02-19 23:00 | NUR ---
REASSESSMENT COMPLETED, PT COMPLAINS OF BEING HOT, EXCESS BLANKETS REMOVED AND THERMOSTAT ADJUSTED, BP STABLE, WILL CONT TO MONITOR FOR CHANGES.
[2019-02-20] VITALS (13 sets, daily range): BP systolic 105–141; BP diastolic 67–98
--- NOTE | 2019-02-20 03:30 | NUR ---
REASSESSMENT COMPLETED, PT RESTING EYES CLOSED, RESP EVEN AND UNLABORED, BP STABLE, WILL CONT TO MONITOR FOR CHANGES.
--- NOTE | 2019-02-20 06:00 | NUR ---
PT REQUESTING PAIN MEDICATION AND TO BE REPOSITIONED, DRSG TO LOWER BACK WITH SANGUINOUS DRAINAGE, DRSGS CHANGED AND PARTIAL LINEN CHANGE PROVIDED, PILLOWS PLACED FOR COMFORT, PT DENIES FURTHER NEEDS, NO VISITORS IN THIS AM.
--- NOTE | 2019-02-20 17:07 | NUR ---
1240: LUIZ DC'D PER PATIENT REQUEST 1400: IV R AC DC'D PER PATIENT REQUEST 1450: DR. TOBAR NOTIFIED OF PATIENT REQUEST TO MOVE OUT OF ICU AND TO RESTART HOME MEDS. NEW ORDERS REC'D. 1710: REPORT CALL TO RECEIVING NURSE.
--- NOTE | 2019-02-20 17:25 | NUR ---
TRANSFERRED TO ROOM 2213. RECEIVING NURSE AT BEDSIDE.
--- NOTE | 2019-02-20 18:09 | NUR ---
PATIENT RECIEVED FROM ICU POST LUMBAR FUSION AND [place]. DRESSINGS TO LOWER BACK C/D/I. ORIENTED PATIENT TO ROOM. CL IN REACH. AGREE WITH PREVIOUS NURSE ASSESSMENT
--- NOTE | 2019-02-20 19:45 | NUR ---
AMBULATORY IN ROOM. IV OUT, CATHETER INTACT. 20G RESITED TO LEFT FOREARM, 2ND ATTEMPT. TOLERATED WELL. REPORTS 10/10 PAIN TO BACK. WILL CONTINUE TO MONITOR.
[2019-02-21] VITALS: BP 107/65
--- NOTE | 2019-02-21 02:01 | NUR ---
I have reviewed this patient and I concur with the Shift Assessment completed by the Licensed Practical Nurse today this shift.
[2019-02-21 04:00] VITALS: BP 104/74
--- NOTE | 2019-02-21 07:25 | NUR ---
ALERT AND ORIENTED. REFUSED SCDS. C/O PAIN, GAVE MORPHINE FOR PAIN. DRESSING C/D/I TO LOWER BACK. IV TO LEFT FOREARM, 1/2 NS INFUSING @ 50ML/HR. SITE PATENT WITHOUT REDNESS OR SWELLING. NO S/S OF ACUTE DISTRESS NOTED. PT DENIES ANY NEEDS AT THIS TIME. CALL LIGHT IN REACH. WILL CONTINUE TO MONITOR.
[2019-02-21 08:46] VITALS: BP 135/86
--- NOTE | 2019-02-21 12:22 | NUR ---
I have reviewed this patient and I concur with the Shift Assessment completed by the Licensed Practical Nurse today this shift.
[2019-02-21 12:42] VITALS: BP 109/74
[2019-02-21] MEDS ORDERED: PERCOCET 10-321 EAC1 (17:15)
[2019-02-21] MEDS ORDERED: ROBAXIN500 MG PO (17:16)
--- NOTE | 2019-02-21 17:39 | MORECARE ---
CASE MANAGEMENT DISCHARGE SUMMARY PATIENT: TERRANCE SCOTT UNIT: [id number] ADM DATE: 02/19/19 AGE: 58 : 58 SEX: F ROOM/BED: D.2213 AUTHOR: KAYLYNN YING PHYSICIAN: REFERRING PHYSICIAN: MARIAMA TOBAR MD DATE OF SERVICE: 02/21/19 Discharge Plan Patient Name: TERRANCE SCOTT Facility: [facility]:[place] : 1960 Planned Disposition: Home Anticipated Discharge Date: 02/21/19 Discharge Date: Expected LOS: 2 Initial Reviewer: [id number] Initial Review Date: 02/19/2019 Generated: 02/21/19 6:39 pm Patient Name: TERRANCE SCOTT Page [phone] at 1736 All edits/amendments must be made on the electronic document DICTATION DATE: 02/21/191738 SPORTS SPECIALIST: ENZO 02/21/191738 RPT#: [id number] DC DATE: STATUS: ADM IN [facility] [address] [place] [address] END OF REPORT
--- NOTE | 2019-02-21 17:46 | MORECARE ---
CASE MANAGEMENT DISCHARGE SUMMARY PATIENT: TERRANCE SCOTT UNIT: [id number] ADM DATE: 02/19/19 AGE: 58 : 58 SEX: F ROOM/BED: D.2213 AUTHOR: KAYLYNN YING PHYSICIAN: REFERRING PHYSICIAN: MARIAMA TOBAR MD DATE OF SERVICE: 02/21/19 Discharge Plan Patient Name: TERRANCE SCOTT Facility: [facility]:[place] : 1960 Planned Disposition: Home Anticipated Discharge Date: 02/21/19 Discharge Date: Expected LOS: 2 Initial Reviewer: [email or web address] Initial Review Date: 02/19/2019 Generated: 02/21/19 6:46 pm Comments DCP- Discharge Planning Updated by [id number]: Mary Phillips on 02/21/19 4:[address] CM VISITED WITH THE PATIENT AT THE BEDSIDE. SHE IS ALERT AND ORIENTED X4. SHE IS SITTING OOB IN THE CHAIR. SHE AMBULATED W/ PHYSICAL THERAPY 250 FT W/ 5% ASSIST OF CONTACT GUARD. SHE IS HAPPY TO BE GOING HOME. HER 'S FAMILY IS HAVING A FAMILY REUNION AND HAS PREPARED DINNER. SHE WANTS TO VISIT W/ HER CATS. CM EXPLAINED THE DISCHARGE IMM. SHE SEEM TO UNDERSTAND. HAD NO QUESTIONS AND VOICED NO CONCERNS. STATED SHE IS MORE THAN READY TO GO. SIGNATURE OBTAINED ON ORIGINAL COPIES OF DISCHARGE IMM. ONE SIGNED COPY TO THE PATIENT. ONE SIGNED COPY TO THE HARD COVER CHART. SHE DENIES ANY NEEDS AT THIS TIME. [facility]- [facility] WILL BE PROVIDING TRANSPORTATION TO HOME. Coverage Notice Reviewer: [id number] - Mary Phillips Notice Issued Date-Time: 02/21/2019 17:30 Notice Type: IM Discharge Notice Notice Delivered To: Patient Relationship to Patient: Self Cream Cheese Maker Name: Delivery Method: HAND - Hand Delivered Stefany Days: Prior Verbal Notification: Recipient Understood Notice: Yes Recipient Signature: Yes Med Rec Note Co-signed by Attending: Coverage Notice Comment: DISCHARGE IMM SERVED. CM EXPLAINED DISCHARGE IMM. PATIENT HAD NO QUESTIONS OR CONCERNS. SIGNED COPY TO THE PATIENT. SIGNED COPY TO THE HARD COVER CHART. Last DP export: 02/21/19 4:39 p Patient Name: TERRANCE SCOTT Page [id number] at 1746 All edits/amendments must be made on the electronic document DICTATION DATE: 02/21/191745 PHYSICIAN SUPPORT COORDINATOR: ENZO 02/21/191745 RPT#: [id number] DC DATE: STATUS: ADM IN [facility] [address] [place] [address] END OF REPORT
--- NOTE | 2019-02-21 18:10 | NUR ---
PT DISCHARGED HOME VIA WHEELCHAIR WITH FAMILY ACCOMPANIED BY STAFF. DISCONTINUED IV, CATHETER TIP INTACT. WENT OVER DISCHARGE INSTRUCTIONS WITH PT, PT VERBALIZED UNDERSTANDING. PT DENIES ANY NEEDS.
--- NOTE | 2019-02-23 09:10 | MORECARE ---
CASE MANAGEMENT DISCHARGE SUMMARY PATIENT: TERRANCE SCOTT UNIT: [id number] ADM DATE: 02/19/19 AGE: 58 : 58 SEX: F ROOM/BED: D.2213 AUTHOR: KAYLYNN YING PHYSICIAN: REFERRING PHYSICIAN: MARIAMA TOBAR MD DATE OF SERVICE: 02/23/19 Discharge Plan Patient Name: TERRANCE SCOTT Facility: [facility]:[place] : 1960 Planned Disposition: Home Anticipated Discharge Date: 02/21/19 Discharge Date: 02/21/2019 Expected LOS: 2 Initial Reviewer: [email or web address] Initial Review Date: 02/19/2019 Generated: 02/23/19 10:09 am Comments DCP- Discharge Planning Updated by [email or web address]: Mary Phillips on 02/21/19 4:[address] CM VISITED WITH THE PATIENT AT THE BEDSIDE. SHE IS ALERT AND ORIENTED X4. SHE IS SITTING OOB IN THE CHAIR. SHE AMBULATED W/ PHYSICAL THERAPY 250 FT W/ 5% ASSIST OF CONTACT GUARD. SHE IS HAPPY TO BE GOING HOME. HER 'S FAMILY IS HAVING A FAMILY REUNION AND HAS PREPARED DINNER. SHE WANTS TO VISIT W/ HER CATS. CM EXPLAINED THE DISCHARGE IMM. SHE SEEM TO UNDERSTAND. HAD NO QUESTIONS AND VOICED NO CONCERNS. STATED SHE IS MORE THAN READY TO GO. SIGNATURE OBTAINED ON ORIGINAL COPIES OF DISCHARGE IMM. ONE SIGNED COPY TO THE PATIENT. ONE SIGNED COPY TO THE HARD COVER CHART. SHE DENIES ANY NEEDS AT THIS TIME. [facility] WILL BE PROVIDING TRANSPORTATION TO HOME. Coverage Notice Reviewer: [id number] - Mary Phillips Notice Issued Date-Time: 02/21/2019 17:30 Notice Type: IM Discharge Notice Notice Delivered To: Patient Relationship to Patient: Self Skiver Machine Name: Delivery Method: HAND - Hand Delivered Stefany Days: Prior Verbal Notification: Recipient Understood Notice: Yes Recipient Signature: Yes Med Rec Note Co-signed by Attending: Coverage Notice Comment: DISCHARGE IMM SERVED. CM EXPLAINED DISCHARGE IMM. PATIENT HAD NO QUESTIONS OR CONCERNS. SIGNED COPY TO THE PATIENT. SIGNED COPY TO THE HARD COVER CHART. Last DP export: 02/21/19 4:46 p Patient Name: TERRANCE SCOTT Page [id number] at 0910 All edits/amendments must be made on the electronic document DICTATION DATE: 02/23/19908 WHEEL ALIGNER: ENZO 02/23/19908 RPT#: [id number] DC DATE:02/21/19 STATUS: DIS IN [facility] [address] [place] [address] END OF REPORT
== END 2019-02-21 18:12 | disposition home or self-care (01) | DRG 460 ==
LOC: D.OPS 16:15 → D.ICU 16:17 → D.MS 16:17
PROVIDERS: Anesthesiology; ADMIT Neurological Surgery; ATTEND Neurological Surgery
PROC: 0SG10AJ Fusion of 2 or more Lumbar Vertebral Joints with Interbody Fusion Device, Posterior Approach, Anterior Column, Open Approach (ICD-10-PCS; principal; 2019-02-19 07:30)
PROC: 01NB0ZZ Release Lumbar Nerve, Open Approach (ICD-10-PCS; 2019-02-19 07:30)
DX: M51.26 Other intervertebral disc displacement, lumbar region (principal); M51.16 Intervertebral disc disorders with radiculopathy, lumbar region; E78.5 Hyperlipidemia, unspecified; F32.9 Major depressive disorder, single episode, unspecified

== ENCOUNTER 2019-06-04 09:00 | Outpatient (CLI) | payer MEDICARE, MEDICAID ==
[2019-02-19 20:05] VITALS: BMI 36.6
[~2019-06-04 09:00] MED LIST changes: +PERCOCET 10-321 EAC1; +ROBAXIN500 MG PO
== END 2019-06-04 10:00 | disposition home or self-care (01) ==
LOC: D.MAMMO 09:00
PROVIDERS: ATTEND Emergency Medicine
DX: Z12.31 Encounter for screening mammogram for malignant neoplasm of breast (principal)